=== PATIENT | male | born 1945 | race Caucasian/White ===

== ENCOUNTER → 2017-07-27 | Outpatient (CLI) | payer MEDICARE ==
[~2017-07-27] MED LIST: CLARITIN10 M2 PO; FLONASE; MULTIVITAMINS1 EAC7 PO; OMEGA 3-6-9 CO400 MG PO; VITAMIN C500 MG PO
--- NOTE | 2017-07-27 15:34 | Diagnostic Imaging Report ---
PROCEDURE: CT ABDOMEN AND PELVIS WITHOUT CONTRAST COMPARISON:Abdomen/pelvis 07/31/15. INDICATIONS:HEMATURIA TECHNIQUE: Axial CT images through the abdomen and pelvis were obtained without oral or intravenous contrast. Coronal and sagittal reformations were created. DLP: 614.89 mGy*cm FINDINGS: Lung bases: Mildly hyperinflated with bibasilar chronic atelectasis. Pacemaker wires terminate in the right atrium and right ventricle. The heart is mildly enlarged. No pericardial or pleural effusions. The distal esophagus is normal. Liver: No evidence of mass. The right lobe measures 16 cm in length. Attenuation is normal. Spleen: Normal size and attenuation with a few punctate calcifications at the lower pole capsule. Biliary: The gallbladder is absent. No biliary ductal dilatation. Pancreas: Diffuse fatty atrophy. A punctate calcification at the proximal tail could be vascular. No ductal dilatation. Adrenal Glands: No mass Right kidney: No renal calculus or cortical mass. No hydronephrosis Left kidney: No renal calculus or cortical mass. No hydronephrosis Bladder/ureters: No ureteral dilatation or calculus. There is mild diffuse bladder wall thickening. The prostate gland measures up 4.1 x 5.1 x 5.1 cm with prominence of the median lobe. Vasculature: Aorta is normal in diameter. GI: The stomach is distended with fluid. Small bowel and large bowel are normal in diameter and wall thickness. There a few diverticula in the large bowel. The appendix is normal. Peritoneum/Retroperitoneum: No free fluid or fluid collection. Lymph nodes: No lymphadenopathy. Surgical clips are present in the small bowel mesentery and throughout the left hemiabdomen. MSK: There are bilateral fat containing inguinal hernias. No bowel containing abdominal wall hernia. Mild to moderate degenerative changes of the spine are present with posterior disc bulges at L1-2, L2-3, L3-4.. No compression deformities. There are no lytic or blastic lesions. CONCLUSION: 1. No renal calculus or obstructive uropathy. 2. Prostate hypertrophy and bladder wall thickening suggestive of outlet ejection. Consider cystoscopy or CT urogram to identify any soft tissue masses as a cause of hematuria. 3. No bowel obstruction or inflammation. Diverticulosis coli. 4. Cholecystectomy. 5. Cardiomegaly and pacemaker wires. Dictated by: Martha Peñaloza M.D. on 07/27/2017 at 15:34 Electronically approved by: Martha Peñaloza M.D. on 07/27/2017 at 15:34
== END | disposition home or self-care (01) ==
LOC: RAD 13:59
PROVIDERS: ATTEND Family Medicine
DX: R31.0 Gross hematuria (principal); Z90.49 Acquired absence of other specified parts of digestive tract; N40.0 Benign prostatic hyperplasia without lower urinary tract symptoms; Z95.0 Presence of cardiac pacemaker; I51.7 Cardiomegaly
CPT/HCPCS: 74176

== ENCOUNTER → 2017-07-30 | Outpatient (CLI) | payer MEDICARE ==
[~2017-07-30] MED LIST changes: +IOPAMIDOL 370 MG/ML 200 ML INFUS..BTL INJ ONE; +SODIUM CHLORIDE 0.9% 250ML 250 ML ONE; +SODIUM CHLORIDE 0.9% 250ML 500 ML ONE
[2017-07-30 11:05] LABS: CREATININE, SERUM 1.4 mg/dL (0.9-1.3)
--- NOTE | 2017-07-30 13:28 | Diagnostic Imaging Report ---
PROCEDURE: CT ABDOMEN AND PELVIS WITH CONTRAST TECHNIQUE: The abdomen and pelvis were scanned utilizing a multidetector helical scanner from the diaphragm to the lesser trochanter after the IV administration of 150 cc of Isovue 370 and the oral administration of water. Coronal and sagittal multiplanar reformations were obtained. Hematuria protocol was utilized. DLP: 742.88 mGy*cm COMPARISON: [facility], CT, CT ABDOMEN/PELVIS WO, 07/27/2017, 14:30. INDICATIONS: HEMATURIA FINDINGS: LOWER THORAX: Cardiac pacing wires. HEPATOBILIARY: No focal hepatic lesions. No biliary ductal dilatation. The gallbladder is absent. SPLEEN: No splenomegaly. PANCREAS: No focal masses or ductal dilatation. ADRENALS: No adrenal nodules. KIDNEYS/URETERS: No hydronephrosis, stones, or solid mass lesions. No renal collecting system filling defects. Mild bilateral perinephric fat stranding is nonspecific. PELVIC ORGANS/BLADDER: Prostate enlargement with indentation of the base of the bladder. No bladder wall mass. PERITONEUM / RETROPERITONEUM: No free air or fluid. Multiple scattered surgical clips. LYMPH NODES: No lymphadenopathy. VESSELS: Atherosclerotic calcification within the aorta, iliac vessels and visceral vessels. Focal narrowing of the SMA past the takeoff with 50% stenosis secondary to a soft plaque. The celiac trunk and AMIRA are patent. GI TRACT: No distention or wall thickening. Partial left colectomy. BONES AND SOFT TISSUES: Multilevel degenerative disease with areas of diffuse disc space narrowing. IMPRESSION: 1. No renal stone, collecting system filling defect or mass identified. 2. Prostate is enlarged with indentation of the base of the bladder. 3. Soft plaque of the SMA past the takeoff results in 50% stenosis. Franko Palumbo D.O. Dictated by: Franko Palumbo D.O. on 07/30/2017 at 13:28 Electronically approved by: Franko Palumbo D.O. on 07/30/2017 at 13:28
== END ==
LOC: CT 10:11
PROVIDERS: ATTEND Family Medicine
DX: N40.0 Benign prostatic hyperplasia without lower urinary tract symptoms (principal)
CPT/HCPCS: 36415; 74177; 82565; 84520; J7050; Q9967

== ENCOUNTER → 2017-09-02 | Outpatient (CLI) | payer MEDICARE ==
[~2017-09-02] MED LIST changes: +IOPAMIDOL 300 MG/ML 15ML VIAL IT ONE; -IOPAMIDOL 370 MG/ML 200 ML INFUS..BTL INJ ONE; -SODIUM CHLORIDE 0.9% 250ML 250 ML ONE; -SODIUM CHLORIDE 0.9% 250ML 500 ML ONE
[2017-09-02 10:08] LABS: BLOOD UREA NITROGEN 24 mg/dL (7-26); BUN/CREATININE RATIO 21 (6-25); CREATININE, SERUM 1.12 mg/dL (0.72-1.25); EST GLOMERULAR FILTRATION RATE > 60 ML/MIN (60-)
[2017-09-02 10:12] LABS: INR 1.06; PARTIAL THROMBOPLASTIN TIME 31.5 seconds (23.8-35.5)
--- NOTE | 2017-09-02 12:54 | Diagnostic Imaging Report ---
PROCEDURE:MYELOGRAM CERVICAL INCL INJ COMPARISON:None. INDICATIONS:RADICULOPATHY, CERVICAL TECHNIQUE:The procedure was explained to the patient in detail including complications. After consent was obtained, the patient was transferred to the fluoroscopy suite and asked to lie in the prone position. Plain films in the PA and lateral projections were obtained and reviewed. The skin in the lower back was prepped and draped in the usual sterile fashion using a Betadine (iodine) solution. The Betadine was allowed to remain on the skin for a few minutes. A 25G needle was used to infiltrate the skin and subcutaneous soft tissues with 1% Xylocaine. Under fluoroscopic guidance, 25 G spinal needle was then advanced into the thecal sac at the L2/L3 level without complications. Once the position of the needle was verified, and clear colorless CSF fluid was visualized, 15 cc of Omnipaque M300 were injected without complications. Spot films in the AP, lateral, and oblique projections were obtained. Following the procedure, the patient was transferred to the CT suite where a scan of the cervical region was obtained. CONCLUSION: Technically successful cervical myelogram. No immediate complications. The patient was instructed to remain in the supine position for the remainder of the day, to avoid excessive straining, bending or carrying heavy objects, to contact the Radiology department in case of fever, increasing neck pain or persistent intractable headache, to report any unexpected symptoms referable to the spine and to resume usual diet and regular activities in 24 hours as tolerated. Dictated by: Justen Calderon M.D. on 09/02/2017 at 12:55 Electronically approved by: Justen Calderon M.D. on 09/02/2017 at 12:55
--- NOTE | 2017-09-02 15:04 | Diagnostic Imaging Report ---
History:Radiculopathy Comparison studies: Preceding myelogram Technique: Axial images were obtained from the thoracic inlet through the skull base. Coronal and sagittal images reconstructed from the axial data. Intrathecal contrast: See myelogram report. Findings: Alignment: Straightening of the cervical lordosis. Grade 1 anterolisthesis of C3 over C4 and C4 over C5 . No scoliosis. Atlantoaxial articulation: Degenerative changes without acute abnormality Cervicomedullary junction: No abnormalities. Patent foramen magnum. No Chiari one malformation. Soft tissues: No gross soft tissue abnormalities. Spinal cord: Normal in size and contour. Vertebrae: No fractures, infection or neoplasm . Degenerative changes: C2-3: Severe left facet hypertrophy results in no canal stenosis and mild left foraminal narrowing C3-4: Disc degeneration with decreased intervertebral space, endplate sclerosis and C3 inferior endplate Schmorl node. Asymmetric right disc osteophyte complex, bilateral uncinate process hypertrophy, severe right and mild left facet hypertrophy results in moderate canal stenosis, severe right and mild left foraminal narrowing. Mild flattening of the cord at this level. C4-5: Disc degeneration with decreased intervertebral space and endplate sclerosis. Diffuse disc osteophyte complex, bilateral uncinate process hypertrophy, mild right and severe left facet hypertrophy results in moderate canal stenosis, mild right and severe left foraminal narrowing C5-6: Disc degeneration with obliterated intervertebral space endplate sclerosis and irregularities. Diffuse disc osteophyte complex, severe bilateral uncinate process hypertrophy and mild bilateral facet hypertrophy results in moderate canal stenosis and severe bilateral foraminal narrowing C6-7: Disc degeneration with decreased intervertebral space and sclerotic endplate changes. Diffuse disc complex, and bilateral uncinate process hypertrophy results in mild canal stenosis and mild bilateral foraminal narrowing C7-T1: Disc degeneration with decreased intervertebral space and endplate sclerosis. Central disc osteophyte complex and bilateral uncinate process hypertrophy results in mild canal stenosis, severe left and mild right foraminal narrowing. Impression: 1. Moderate degenerative canal stenosis at C3-4, C4-5 and C5-6. Severe multilevel degenerative foraminal narrowing at C3-4 on the right, C4-5 on the left, C5-6 bilaterally and C7-T1 on the left. 2. Severe uncinate process hypertrophy, facet hypertrophy and disc degeneration as described above. Other degenerative changes as described. Signed by: DR Bhanu Marquez M.D. on 09/02/2017 3:00 PM
== END ==
LOC: DX 09:13
PROVIDERS: ATTEND Family Medicine
DX: M54.12 Radiculopathy, cervical region (principal); Z72.3 Lack of physical exercise
CPT/HCPCS: 36415; 72126; 82565; 84520; 85049; 85610; 85730; Q9967; 62302

== ENCOUNTER → 2017-10-30 | Outpatient (CLI) | payer MEDICARE ==
[~2017-10-30] MED LIST changes: -IOPAMIDOL 300 MG/ML 15ML VIAL IT ONE
--- NOTE | 2017-11-02 08:05 | Diagnostic Imaging Report ---
Bone Scan, delayed phase INDICATION: Prostate cancer; hematuria COMPARISON: CT cervical spine REPORT: Approximately 3 hours following intravenous administration of 23.8 mCi of Tc-99m MDP, delayed total body images in the anterior and posterior projections and selected spot images were obtained. Focal areas of mildly increased tracer are seen n the cervical spine at multiple levels as well as at multiple levels of the thoracolumbar spine, consistent with degenerative changes. A right knee prosthesis is noted. Degenerative changes are also noted in the left shoulder, bilateral sternoclavicular joints, left knee and feet. Otherwise, distribution of tracer activity is unremarkable throughout the skeletal system. No abnormal accumulation of tracer is seen in the soft tissues or urinary tract. The kidneys are small. IMPRESSION: No scan evidence of metastatic bone disease. Signed by: Dr. Yohana Wade M.D. on 11/02/2017 8:01 AM
== END | disposition home or self-care (01) ==
LOC: NM 09:13
PROVIDERS: ATTEND Urology
DX: R31.0 Gross hematuria (principal); R82.99 Other abnormal findings in urine
CPT/HCPCS: 78306; A9503

== ENCOUNTER → 2017-11-12 | Outpatient (CLI) | payer MEDICARE ==
[~2017-11-12] MED LIST changes: +IOPAMIDOL 370 MG/ML 200 ML INFUS..BTL INJ ONE; +SODIUM CHLORIDE 0.9% 250ML 250 ML ONE; +SODIUM CHLORIDE 0.9% 500ML 500 ML ONE; +SODIUM CHLORIDE 0.9% 50ML 50 ML ONE
[2017-11-12 12:16] LABS: CREATININE, SERUM 1.43 mg/dL (0.72-1.25)
--- NOTE | 2017-11-12 14:22 | Diagnostic Imaging Report ---
PROCEDURE: CT scan of the chest WITH intravenous contrast, using standard protocol. TECHNIQUE: The chest was scanned utilizing a multidetector helical scanner from the lung apex through the level of the adrenal glands after the IV administration of 80 cc of Isovue 370. Coronal and sagittal multiplanar reformations were obtained. COMPARISON: [facility], CT, CT CHEST W, 08/02/2015, 21:12. INDICATIONS: UROTHELIAL CANCER FINDINGS: Lines/tubes: Left upper chest 2-lead cardiac device with distal tips in the right atrium and right ventricle Lungs and Airways: The previously visualized 3 mm subpleural nodular density in the right upper lobe is not seen on the current exam, and likely represented focal atelectasis. Stable 4 mm nodule in the anterior right upper lobe (series 4, image 64). No other pulmonary nodules. No masses or consolidation. Stable bilateral posteromedial lower lobe and lingular linear opacities, consistent with scarring. Airways are clear, without endobronchial lesions. Pleura: The pleural spaces are clear. Heart and mediastinum: Thyroid is unremarkable. Heart size is normal. No pericardial effusion. Atherosclerotic calcification of the coronary arteries and thoracic aorta. Lymph nodes: No mediastinal, hilar, or axillary adenopathy. Abdomen: Please see CT chest performed same date for further detail. Bones: No aggressive lytic lesion. Multilevel degenerative disc changes in the thoracic spine. IMPRESSION: 1. No evidence of metastatic disease in the thorax. 2. Stable 4 mm nodule in the anterior right upper lobe since 2015, which is presumed benign. Ventura Coronel M.D. Dictated by: Ventura Coronel M.D. on 11/12/2017 at 14:27 Electronically approved by: Ventura Coronel M.D. on 11/12/2017 at 14:27
--- NOTE | 2017-11-12 14:31 | Diagnostic Imaging Report ---
PROCEDURE: CT ABDOMEN AND PELVIS WITH CONTRAST TECHNIQUE: The abdomen and pelvis were scanned utilizing a multidetector helical scanner from the diaphragm to the lesser trochanter after the IV administration of 80 cc of Isovue 370 and the oral administration of water. Coronal and sagittal multiplanar reformations were obtained. COMPARISON: [facility], CT, CT ABDOMEN/PELVIS W, 07/30/2017, 12:01. INDICATIONS: UROTHELIAL CANCER FINDINGS: LOWER THORAX: Please see CT chest performed same date for further detail. HEPATOBILIARY: Normal hepatic size and contour. No focal hepatic lesions. Decreased attenuation of the hepatic parenchyma compared the spleen, consistent with steatosis. No biliary ductal dilation. Cholecystectomy clips. SPLEEN: No splenomegaly. PANCREAS: No focal masses or ductal dilatation. ADRENALS: No adrenal nodules. KIDNEYS/URETERS: Symmetrical renal enhancement. No renal or ureteral calculi, hydronephrosis, or obstruction. No solid enhancing masses. No significant perinephric stranding. PELVIC ORGANS/BLADDER: Circumferential bladder wall thickening, which may be partly due to under distention. No focal lesion. Prostate measures approximately 4.0 x 3.7 x 4.8 cm (estimated volume 37 mL) and indents the inferior aspect of the bladder. Dystrophic calcifications are noted in the prostate.. PERITONEUM / RETROPERITONEUM: No free air or fluid. Metallic clips are noted in the mesentery. LYMPH NODES: No lymphadenopathy. VESSELS: The celiac trunk, superior and inferior mesenteric, and bilateral renal arteries are patent. Portal, superior mesenteric, and splenic veins are patent. Atherosclerotic calcification of the abdominal aorta, iliac vessels and aortic branches. Stable soft plaque in the proximal SMA which results in 50% luminal reduction (sagittal image 82). GI TRACT: No bowel dilation or evidence of obstruction. Appendix is well identified and normal in caliber. No pericolonic inflammatory changes. BONES AND SOFT TISSUES: No aggressive lytic lesions. Moderate multilevel degenerative disc changes in the lower thoracic and lumbosacral spine. Facet hypertrophy. L4-L5 and L5-S1. Tiny fat-containing umbilical hernia. Stable bilateral fat-containing inguinal hernias. IMPRESSION: 1. No evidence of metastatic disease in the abdomen or pelvis. 2. Circumferential bladder wall thickening, which may be partly due to under distention and/or outlet obstruction secondary to a mildly enlarged prostate. No focal lesion is identified. 3. Hepatic steatosis. Ventura Coronel M.D. Dictated by: Ventura Coronel M.D. on 11/12/2017 at 14:35 Electronically approved by: Ventura Coronel M.D. on 11/12/2017 at 14:35
== END ==
LOC: CT 11:38
PROVIDERS: ATTEND Urology
DX: C68.9 Malignant neoplasm of urinary organ, unspecified (principal)
CPT/HCPCS: 36415; 71260; 74177; 82565; 84520; J7040; J7050; Q9967

== ENCOUNTER → 2017-11-30 | Outpatient (CLI) | payer MEDICARE ==
[~2017-11-30] MED LIST changes: -IOPAMIDOL 370 MG/ML 200 ML INFUS..BTL INJ ONE; -SODIUM CHLORIDE 0.9% 250ML 250 ML ONE; -SODIUM CHLORIDE 0.9% 500ML 500 ML ONE; -SODIUM CHLORIDE 0.9% 50ML 50 ML ONE
--- NOTE | 2017-11-30 14:37 | Diagnostic Imaging Report ---
PROCEDURE: Frontal and lateral views of the chest. COMPARISON: Chest CT dated 11/12/2017 INDICATIONS: UROTHELIAL CANCER FINDINGS: Lines/tubes: Dual-lead left chest wall cardiac device in place the distal leads overlying right atrium and right ventricle. Lungs: The lungs are well inflated and clear. There is no evidence of pneumonia or pulmonary edema. Minimal left basilar subsegmental atelectasis. Pleura: There is no pleural effusion or pneumothorax. Heart and mediastinum: The heart and the mediastinum are normal. Bones: No acute bony abnormality. Degenerative changes of thoracic spine. IMPRESSION: 1. No acute cardiopulmonary disease. Dictated by: David Galvin M.D. on 11/30/2017 at 14:41 Electronically approved by: David Galvin M.D. on 11/30/2017 at 14:41
== END ==
LOC: RAD 13:55
PROVIDERS: ATTEND Urology
DX: C68.9 Malignant neoplasm of urinary organ, unspecified (principal)
CPT/HCPCS: 71046

== ENCOUNTER → 2018-01-14 | Outpatient (CLI) | payer MEDICARE ==
--- NOTE | 2018-01-14 13:26 | Diagnostic Imaging Report ---
EXAMINATION: CHEST 2 VIEWS INDICATION: Malignant neoplasm of urinary bladder COMPARISON: FINDINGS: PA and lateral views TUBES and LINES: None. LUNGS: Stable hyperinflation consistent with COPD. There is no evidence of mass, pneumonia or pulmonary edema. PLEURA: No pleural effusion or pneumothorax. HEART AND MEDIASTINUM: The heart is normal in size. Dual-lead pacemaker wires are stable in position in the right atrium and right ventricle. BONES AND SOFT TISSUES: Stable degenerative changes of the spine. No focal osseous lesions. Soft tissues are unremarkable. UPPER ABDOMEN: No free air under the diaphragm. IMPRESSION: Stable chest. No acute thoracic abnormality. Signed by: Dr. Martha Peñaloza MD on 01/14/2018 1:22 PM
== END ==
LOC: RAD 12:27
PROVIDERS: ATTEND Urology
DX: C67.9 Malignant neoplasm of bladder, unspecified (principal); Z01.812 Encounter for preprocedural laboratory examination
CPT/HCPCS: 71046

== ENCOUNTER → 2018-08-10 | Outpatient (CLI) | payer MEDICARE ==
[~2018-08-10] MED LIST changes: +IOPAMIDOL 370 MG/ML 200 ML INFUS..BTL INJ ONE; +SODIUM CHLORIDE 0.9% 50ML 50 ML ONE
[2018-08-10 12:13] LABS: BLOOD UREA NITROGEN 20 mg/dL (8-26); BUN/CREATININE RATIO 22 (6-25); CREATININE, SERUM 0.9 mg/dL (0.9-1.3)
[2018-08-10 12:14] LABS: EST GLOMERULAR FILTRATION RATE > 60 ML/MIN (60-)
--- NOTE | 2018-08-10 14:03 | Diagnostic Imaging Report ---
EXAM: CHEST 2 VIEWS, PA and lateral DATE: 08/10/2018 Time stamp on exam: 12:13 PM INDICATION: Prostate cancer. COMPARISON: None FINDINGS: LINES/TUBES: Dual lead left-sided cardiac device. LUNGS: No consolidations or edema. PLEURA: No effusions or pneumothorax. HEART AND MEDIASTINUM: Normal size and contour. BONES AND SOFT TISSUES: No acute findings. Degenerative changes of the spine. IMPRESSION: No acute thoracic abnormality. Signed by: Dr. Franko Palumbo DO on 08/10/2018 1:59 PM
--- NOTE | 2018-08-10 15:41 | Diagnostic Imaging Report ---
EXAMINATION: CT of the abdomen and pelvis with contrast. TECHNIQUE: Helical CT images of the abdomen and pelvis were performed from the lung bases to the lesser trochanters after the intravenous administration of 150 cc of Omnipaque 300 and the oral administration of none. Coronal and sagittal reformatted images were obtained.Dose modulation, iterative reconstruction, and/or weight based adjustment of the mA/kV was utilized to reduce the radiation dose to as low as reasonably achievable. COMPARISON: None. CLINICAL HISTORY:Bladder malignancy DISCUSSION: ABDOMEN/PELVIS: LOWER THORAX:Unremarkable. HEPATOBILIARY: No focal hepatic lesions. No intra-or extrahepatic biliary ductal dilation. Cholecystectomy. SPLEEN: No splenomegaly. PANCREAS: No focal masses or ductal dilatation. ADRENALS: No adrenal nodules. KIDNEYS/URETERS: No hydronephrosis, stones, or solid mass lesions. PELVIC ORGANS/BLADDER: Cystoprostatectomy. Urinary diversion with right lower quadrant urostomy. PERITONEUM/RETROPERITONEUM: No free air or fluid. LYMPH NODES: No intra-abdominal, retroperitoneal, pelvic or inguinal lymphadenopathy. VESSELS: Vascular calcifications. GI TRACT: No distention or wall thickening. BONES AND SOFT TISSUE: Mild multilevel spondylosis. No soft tissue abnormalities. IMPRESSION: Cystoprostatectomy with right lower quadrant urostomy. No adenopathy or metastasis. Signed by: Dr. Benja Mesa M.D. on 08/10/2018 3:37 PM
== END ==
LOC: CT 11:35
PROVIDERS: ATTEND Urology
DX: C67.8 Malignant neoplasm of overlapping sites of bladder (principal)
CPT/HCPCS: 36415; 71046; 74177; 82565; 84520; Q9967

== ENCOUNTER → 2018-12-31 | Outpatient (CLI) | payer MEDICARE ==
[~2018-12-31] MED LIST changes: -IOPAMIDOL 370 MG/ML 200 ML INFUS..BTL INJ ONE; -SODIUM CHLORIDE 0.9% 50ML 50 ML ONE
--- NOTE | 2018-12-31 15:36 | Diagnostic Imaging Report ---
Chest, 2 views, 12/31/2018. History: History of bladder cancer. Comparison: 08/10/2018. Findings: The cardiomediastinal silhouette and pulmonary vasculature are within normal limits. Linear opacities are present at the lung bases suggestive of minimal scarring. The lungs are otherwise clear without evidence of consolidation or pleural effusion. Left subclavian dual-lead pacer is unchanged in position. Degenerative changes are noted throughout the thoracic spine. There are no acute osseous or soft tissue abnormalities. Impression: No acute cardiopulmonary abnormality. Signed by: Gregg Moncada on 12/31/2018 3:33 PM
== END ==
LOC: RAD 14:46
PROVIDERS: ATTEND Urology
DX: C67.8 Malignant neoplasm of overlapping sites of bladder (principal)
CPT/HCPCS: 71046

== ENCOUNTER → 2019-01-06 | Outpatient (CLI) | payer MEDICARE ==
[~2019-01-06] MED LIST changes: +IOPAMIDOL 370 MG/ML 200 ML INFUS..BTL INJ ONE; +SODIUM CHLORIDE 0.9% 50ML 50 ML ONE
[2019-01-06 12:24] LABS: BLOOD UREA NITROGEN 35 mg/dL (7-26); BUN/CREATININE RATIO 37 (6-25); CREATININE, SERUM 0.95 mg/dL (0.72-1.25); EST GLOMERULAR FILTRATION RATE > 60 ML/MIN (60-)
--- NOTE | 2019-01-06 17:34 | Diagnostic Imaging Report ---
Exam: CT abdomen and pelvis Comparison: August 10, 2018 Clinical history: Bladder and prostate cancer Technique: Helical images of the abdomen and pelvis were obtained after IV contrast administration Findings: The lung bases are clear. There is no evidence of pleural effusion. The cardiac size is within normal limits. The liver, spleen, pancreas, adrenal glands, and kidneys are unremarkable. The gallbladder has been removed. The small and large bowels are normal in caliber without evidence of obstruction. Ileal conduit is again noted exiting the right lower quadrant of the abdomen. The patient is status post cystoprostatectomy. There is no evidence of lymphadenopathy or free fluid. The aorta and IVC are normal in caliber. No suspicious osteoblastic or lytic lesions are noted in the visualized osseous structures. Impression: 1. Status post cystoprostatectomy and urostomy. 2. No CT evidence of metastatic disease in the abdomen and pelvis. Signed by: Dr. Miguel Yun MD on 01/06/2019 5:31 PM
== END ==
LOC: CT 11:20
PROVIDERS: ATTEND Urology
DX: C67.8 Malignant neoplasm of overlapping sites of bladder (principal)
CPT/HCPCS: 36415; 74177; 82565; 84520; Q9967

== ENCOUNTER → 2019-07-08 | Outpatient (CLI) | payer MEDICARE ==
[~2019-07-08] MED LIST changes: +DIATRIZOATE MEGL/DIATRIZOA SOD 30 ML BTL PO ONE
[2019-07-08 18:22] LABS: BLOOD UREA NITROGEN 25 mg/dL (7-26); BUN/CREATININE RATIO 26 (6-25); CREATININE, SERUM 0.98 mg/dL (0.72-1.25); EST GLOMERULAR FILTRATION RATE > 60 ML/MIN (60-)
--- NOTE | 2019-07-08 19:16 | Diagnostic Imaging Report ---
EXAMINATION: PA and lateral views of the chest. COMPARISON: Chest 2 views 12/31/2018 CLINICAL HISTORY: Malignant neoplasm of prostate DISCUSSION: Lines/tubes: Stable left upper chest dual lead cardiac device, with distal tips projecting in the right atrium and right ventricle. Lungs: The lungs are well inflated. Stable linear opacities at the lung bases, likely representing minimal scarring. There is no evidence of pneumonia or pulmonary edema. Pleura: There is no pleural effusion or pneumothorax. Heart and mediastinum: Cardiomediastinal silhouette is unremarkable. Pulmonary vasculature is normal. Bones and soft tissues: No acute bony abnormalities. Degenerative changes in the thoracic spine IMPRESSION: No acute cardiopulmonary abnormalities. Signed by: Dr. Ventura Coronel M.D. on 07/08/2019 7:13 PM
--- NOTE | 2019-07-08 19:50 | Diagnostic Imaging Report ---
EXAMINATION: CT of the abdomen and pelvis with contrast. TECHNIQUE: Spiral CT images of the abdomen and pelvis were performed from the lung bases to the lesser trochanters after the intravenous administration of 100 cc of Isovue 370 and the oral administration of dilute Gastrografin. Coronal and sagittal reformatted images were obtained. COMPARISON: CT abdomen and pelvis 01/06/2019 CLINICAL HISTORY:Malignant neoplasm of bladder, status post cystectomy DISCUSSION: ABDOMEN/PELVIS: LOWER THORAX:Stable linear opacities in bilateral lower lobes, left greater than right, consistent with scarring. No pulmonary nodules or masses. Distal portion of pacing wires noted in the right atrium and right ventricle. HEPATOBILIARY: No focal hepatic lesions. No intra or extrahepatic biliary ductal dilation. GALLBLADDER: Cholecystectomy clips. SPLEEN: No splenomegaly. PANCREAS: No focal masses or ductal dilatation. ADRENALS: No adrenal nodules. KIDNEYS/URETERS: No renal or ureteral calculi, hydronephrosis or obstruction. No solid enhancing masses. PELVIC ORGANS/BLADDER: Status post cystoprostatectomy with placement of right lower anterior urostomy. No enhancing soft tissue/mass in the expected location of the bladder. PERITONEUM/RETROPERITONEUM: No free air or fluid. LYMPH NODES: No intra-abdominal, retroperitoneal, pelvic or inguinal lymphadenopathy. VESSELS: The celiac trunk,superior and inferior mesenteric and bilateral renal arteries are patent The portal, superior mesenteric and splenic veins are patent. Atherosclerotic calcification of the abdominal aorta and iliac vessels. GI TRACT: No bowel dilation or evidence of obstruction. Appendix is well identified and normal in caliber. No pericolonic inflammatory changes. BONES AND SOFT TISSUE: No aggressive lytic or suspicious sclerotic lesions. Stable nonaggressive appearing 5-6 mm focal sclerotic lesions in the sacrum (series 2, images 59 and 60), right femoral head (series 2, image 72) and bilateral acetabulum (series 2, image 66-67), likely reflecting bone islands. Multilevel degenerated discs and osteophytosis in the lower thoracic and lumbosacral spine No soft tissue abnormalities. IMPRESSION: 1. Status post cystoprostatectomy and urostomy placement. No CT evidence of metastatic disease in the abdomen and pelvis. Signed by: Dr. Ventura Coronel M.D. on 07/08/2019 7:47 PM
== END ==
LOC: CT 16:05
PROVIDERS: ATTEND Urology
DX: C67.8 Malignant neoplasm of overlapping sites of bladder (principal)
CPT/HCPCS: 36415; 71046; 74177; 82565; 84520; Q9967

== ENCOUNTER → 2020-01-04 | Outpatient (CLI) | payer MEDICARE ==
[~2020-01-04] MED LIST changes: -DIATRIZOATE MEGL/DIATRIZOA SOD 30 ML BTL PO ONE; +SODIUM CHLORIDE 0.9% 250ML 250 ML ONE; -SODIUM CHLORIDE 0.9% 50ML 50 ML ONE
[2020-01-04 15:56] LABS: BASOPHILS # (AUTO) 0.1 (0.0-0.1); BASOPHILS % 0.9 % (0.0-1.0); EOSINOPHILS # (AUTO) 0.4 (0.0-0.4); EOSINOPHILS % 4.7 % (0.0-6.0); HEMATOCRIT 46.7 % (38.2-49.6); HEMOGLOBIN 15.7 g/dL (14.0-18.0); LYMPHOCYTES % 22.6 % (18.0-39.1); MEAN CORPUSCULAR HEMOGLOBIN 30.3 pg (28-32); MEAN CORPUSCULAR HGB CONC 33.6 g/dL (31-35); MEAN CORPUSCULAR VOLUME 90.2 fL (81-99); MONOCYTES # (AUTO) 0.7 (0.2-0.8); MONOCYTES % 7.4 % (4.4-11.3); NEUTROPHILS # (AUTO) 5.7 (2.1-6.9); NEUTROPHILS % 63.7 % (38.7-80.0); PLATELET COUNT 158 x10e3/uL (140-360); RED BLOOD COUNT 5.18 x10e6/uL (4.3-5.7); RED CELL DISTRIBUTION WIDTH 12.8 % (11.7-14.4)
--- NOTE | 2020-01-04 15:59 | Diagnostic Imaging Report ---
Exam: CHEST 2 VIEWS Date: 01/04/2020 3:55 PM Indication: Bladder cancer Comparison: 07/08/2019 FINDINGS: Lines/Tubes:Stable left upper lobe dual-lead pacemaker device. Lungs:The lungs are well inflated. No focal consolidation or pulmonary edema. Pleura:No pleural effusion. No pneumothorax. Heart/Mediastinum:The cardiomediastinal silhouette is normal in size and contour. Bones/Soft Tissues: No acute osseous abnormality. Moderate multilevel degenerative changes of the thoracic spine are noted. Upper abdomen: Unremarkable. IMPRESSION: Negative for acute intrathoracic process. Signed by: Sampson Kelley MD on 01/04/2020 3:56 PM
[2020-01-04 16:15] LABS: ALANINE AMINOTRANSFERASE 35 IU/L (0-55); ALBUMIN/GLOBULIN RATIO 1.5 (0.8-2.0); ALKALINE PHOSPHATASE 90 IU/L (40-150); ANION GAP 16.1 mmol/L (8-16); BLOOD UREA NITROGEN 29 mg/dL (7-26); BUN/CREATININE RATIO 27 (6-25); CALCIUM 9.1 mg/dL (8.4-10.2); CARBON DIOXIDE 20 mmol/L (22-29); CHLORIDE 108 mmol/L (98-107); CREATININE, SERUM 1.08 mg/dL (0.72-1.25); EST GLOMERULAR FILTRATION RATE > 60 ML/MIN (60-); GLUCOSE 114 mg/dL (74-118); POTASSIUM 4.1 mmol/L (3.5-5.1); SODIUM 140 mmol/L (136-145)
--- NOTE | 2020-01-05 08:53 | Diagnostic Imaging Report ---
TECHNIQUE: CT of the abdomen and pelvis WITHOUT and WITH intravenous contrast and WITHOUT oral contrast. Dose modulation, iterative reconstruction, and/or weight-based adjustment of the mA/kV was utilized to reduce the radiation dose to as low as reasonably achievable. IV CONTRAST: 100 mL of Isovue-370 ORAL CONTRAST: Water RADIATION DOSE: Total DLP: 1440 mGy*cm COMPLICATIONS: None INDICATION: ^[id number] ^[id number] ^MALIGNANT NEOPLASM OF OVERLAPPING S. COMPARISON: [facility] 07/08/2019. FINDINGS: LOWER THORAX: Unremarkable. HEPATOBILIARY: No focal hepatic lesions. Gallbladder is surgically absent. No biliary ductal dilatation. SPLEEN: No splenomegaly. PANCREAS: No focal masses or ductal dilatation. Stable mild fatty atrophy ADRENALS: No adrenal nodules. KIDNEYS/URETERS: No hydronephrosis, stones, or masses. Symmetric excretion of contrast without intraluminal filling defect. Postsurgical changes from ileal conduit are noted within the right lower quadrant. Noncontrast images negative for urinary tract calculus. PELVIC ORGANS/BLADDER: Bladder is surgically absent. Prostate is surgically absent. No suspicious fluid collection or mass within the surgical bed. PERITONEUM/RETROPERITONEUM: No free air or fluid. LYMPH NODES: No lymphadenopathy. Stable multiple nonenlarged retroperitoneal and inguinal lymph nodes. VESSELS: Negative for abdominal aortic aneurysm. Scattered atherosclerotic changes of the abdominal aorta and its major branches are noted and similar to prior exam. GI TRACT: Bowel loops are nondilated. Lack of oral contrast limits evaluation. Normal appendix is noted. No surrounding inflammatory changes are identified.. BONES AND SOFT TISSUES: Negative for acute osseous abnormality. Negative for suspicious lytic or blastic lesion. Advanced degenerative changes of the lower lumbar spine are noted with disc space narrowing, vacuum phenomenon, osteophytes, posterior disc bulge and posterior facet arthropathy. 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 Fat-containing bilateral inguinal hernias are noted. Midline infraumbilical scar is stable. IMPRESSION: 1. 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 Negative for hydronephrosis or obstruction. 2. No evidence of metastatic disease within the abdomen or pelvis. Signed by: Sampson Kelley MD on 01/05/2020 8:49 AM
== END ==
LOC: CT 15:02
PROVIDERS: ATTEND Urology
DX: C67.8 Malignant neoplasm of overlapping sites of bladder (principal)
CPT/HCPCS: 36415; 71046; 74178; 80053; 82607; 85025; J7050; Q9967

== ENCOUNTER → 2020-07-25 | Outpatient (CLI) | payer MEDICARE ==
[2020-07-25 12:42] LABS: BLOOD UREA NITROGEN 21 mg/dL (7-26); BUN/CREATININE RATIO 21 (6-25); CREATININE, SERUM 1.02 mg/dL (0.72-1.25); EST GLOMERULAR FILTRATION RATE > 60 ML/MIN (60-)
== END ==
LOC: CT 11:40
PROVIDERS: ATTEND Urology
DX: C67.8 Malignant neoplasm of overlapping sites of bladder (principal)
CPT/HCPCS: 36415; 71046; 74178; 82565; 84520; J7050; Q9967

== ENCOUNTER → 2020-12-31 | Outpatient (CLI) | payer MEDICARE ==
[~2020-12-31] MED LIST changes: -IOPAMIDOL 370 MG/ML 200 ML INFUS..BTL INJ ONE; -SODIUM CHLORIDE 0.9% 250ML 250 ML ONE
== END ==
LOC: RAD 13:34
PROVIDERS: ATTEND Urology
DX: C67.8 Malignant neoplasm of overlapping sites of bladder (principal)
CPT/HCPCS: 71046

== ENCOUNTER → 2021-01-01 | Outpatient (CLI) | payer MEDICARE ==
[~2021-01-01] MED LIST changes: +IOPAMIDOL 370 MG/ML 200 ML INFUS..BTL INJ ONE; +SODIUM CHLORIDE 0.9% 250ML 250 ML ONE
== END ==
LOC: CT 10:24
PROVIDERS: ATTEND Urology
DX: C67.8 Malignant neoplasm of overlapping sites of bladder (principal)
CPT/HCPCS: 74178; J7050; Q9967

== ENCOUNTER → 2021-08-05 | Outpatient (CLI) | payer MEDICARE ==
[2021-08-05 10:55] LABS: BASOPHILS # (AUTO) 0.1 (0.0-0.1); BASOPHILS % 0.5 % (0.0-1.0); EOSINOPHILS # (AUTO) 0.3 (0.0-0.4); EOSINOPHILS % 2.8 % (0.0-6.0); HEMATOCRIT 45.6 % (38.2-49.6); HEMOGLOBIN 16.3 g/dL (14.0-18.0); LYMPHOCYTES # (AUTO) 1.4 (1.0-3.2); LYMPHOCYTES % 15.1 % (18.0-39.1); MEAN CORPUSCULAR HEMOGLOBIN 34.2 pg (28-32); MEAN CORPUSCULAR HGB CONC 35.7 g/dL (31-35); MEAN CORPUSCULAR VOLUME 95.6 fL (81-99); MONOCYTES # (AUTO) 0.6 (0.2-0.8); NEUTROPHILS # (AUTO) 7.1 (2.1-6.9); NEUTROPHILS % 75.4 % (38.7-80.0); PLATELET COUNT 161 x10e3/uL (140-360); RED BLOOD COUNT 4.77 x10e6/uL (4.3-5.7); RED CELL DISTRIBUTION WIDTH 15.6 % (11.7-14.4)
[2021-08-05 11:15] LABS: ALBUMIN 4.1 g/dL (3.5-5.0); ALBUMIN/GLOBULIN RATIO 1.5 (0.8-2.0); ANION GAP 10.8 mmol/L (8-16); CALCIUM 8.9 mg/dL (8.4-10.2); CREATININE, SERUM 0.87 mg/dL (0.72-1.25); POTASSIUM 3.8 mmol/L (3.5-5.1)
== END ==
LOC: CT 10:04
PROVIDERS: ATTEND Urology
DX: C67.8 Malignant neoplasm of overlapping sites of bladder (principal); E53.8 Deficiency of other specified B group vitamins
CPT/HCPCS: 36415; 74178; 80053; 82607; 85025; J7050; Q9967

== ENCOUNTER → 2022-01-23 | Outpatient (CLI) | payer MEDICARE ==
[~2022-01-23] MED LIST changes: -IOPAMIDOL 370 MG/ML 200 ML INFUS..BTL INJ ONE; -SODIUM CHLORIDE 0.9% 250ML 250 ML ONE
[2022-01-23 12:41] LABS: BASOPHILS # (AUTO) 0.1 (0.0-0.1); BASOPHILS % 0.9 % (0.0-1.0); EOSINOPHILS # (AUTO) 0.4 (0.0-0.4); EOSINOPHILS % 4.3 % (0.0-6.0); HEMATOCRIT 47.7 % (38.2-49.6); HEMOGLOBIN 16.1 g/dL (14.0-18.0); LYMPHOCYTES # (AUTO) 1.6 (1.0-3.2); LYMPHOCYTES % 16.5 % (18.0-39.1); MEAN CORPUSCULAR HEMOGLOBIN 31.9 pg (28-32); MEAN CORPUSCULAR HGB CONC 33.8 g/dL (31-35); MEAN CORPUSCULAR VOLUME 94.6 fL (81-99); MONOCYTES # (AUTO) 0.8 (0.2-0.8); MONOCYTES % 7.7 % (4.4-11.3); NEUTROPHILS % 70.2 % (38.7-80.0); PLATELET COUNT 141 x10e3/uL (140-360); RED BLOOD COUNT 5.04 x10e6/uL (4.3-5.7)
[2022-01-23 12:59] LABS: ALBUMIN 3.9 g/dL (3.5-5.0); ALBUMIN/GLOBULIN RATIO 1.5 (0.8-2.0); ANION GAP 14.5 mmol/L (8-16); CALCIUM 9.4 mg/dL (8.4-10.2); CREATININE, SERUM 1.01 mg/dL (0.72-1.25); POTASSIUM 4.5 mmol/L (3.5-5.1)
== END ==
LOC: RAD 11:32
PROVIDERS: ATTEND Urology
DX: C67.8 Malignant neoplasm of overlapping sites of bladder (principal); E53.8 Deficiency of other specified B group vitamins
CPT/HCPCS: 36415; 71046; 80053; 85025

== ENCOUNTER → 2022-01-31 | Outpatient (CLI) | payer MEDICARE ==
[~2022-01-31] MED LIST changes: +IOPAMIDOL 370 MG/ML 100 ML INFUS..BTL INJ ONE; +SODIUM CHLORIDE 0.9% 100 ML ONE
[2022-01-31 14:29] LABS: CREATININE, SERUM 0.97 mg/dL (0.72-1.25)
== END ==
LOC: CT 13:21
PROVIDERS: ATTEND Urology
DX: C67.8 Malignant neoplasm of overlapping sites of bladder (principal); E53.8 Deficiency of other specified B group vitamins
CPT/HCPCS: 36415; 74178; 82565; 84520; J7050; Q9967